=== PATIENT | female | born 2000 | race Caucasian/White ===

== ENCOUNTER 2023-04-06 10:53 | Emergency (ER) | payer MEDICAID, SELFPAY ==
--- NOTE | 2023-04-06 11:04 | ED.SKABFB ---
HPI - Skin/Abscess/Foreign Bdy General Chief complaint: Skin/Abscess/Foreign Body Stated complaint: body rash Time Seen by Provider: 04/06/23 10:59 Source: patient Mode of arrival: ambulatory Limitations: no limitations History of Present Illness HPI narrative: Isabella is a 22-year-old female patient presenting to the clinic today with complaints of rash all over her body. She reports the rash is itchy. States that this rash has been ongoing x3 days. Denies sore throat. Has tried Benadryl gel without much relief. Denies any known fever or chills. Is visiting [facility] all and has had different exposures to soaps, shampoos, detergents. No changes in food or medications. Related Data Home Medications Medication Instructions Recorded Confirmed levonorgestrel-ethinyl estradiol 1 tablet PO DAILY 04/06/23 04/06/23 0.1 mg-20 mcg tablet (Vienva) Allergies Allergy/AdvReac Type Severity Reaction Status Date / Time No Known Allergies Allergy Verified 04/06/23 11:14 Review of Systems Review of Systems: Pertinent positives per HPI. Patient denies any fever, chills, headache, visual changes, dizziness, cough, runny nose, sore throat, shortness of breath, chest pain, palpitations, nausea, vomiting, diarrhea, constipation, abdominal pain, or any urinary issues. PMFSH Comments At the time of my signature, I reviewed and agree with the nursing past medical, surgical, social, and family history. There is no relevant family history pertinent to the patient complaint. Exam Narrative: General: Well-developed, well nourished, in no apparent distress Head: Normocephalic, atraumatic Eyes: Pupils equally round and reactive to light bilaterally, EOM intact, sclera and conjunctive clear, no discharge, lids normal Ears: TMs intact and clear, ear canals clear, no drainage, grossly hearing normal. Nose: Nares patent, no discharge, no inflammation, no sinus tenderness. Mouth: Oropharynx red without lesions or masses, good dentition, MMM. Neck: Supple, trachea midline, no enlargement of anterior or posterior cervical nodes, no thyroid masses or goiter palpable. Cardio: Regular rate and rhythm, s1 and s2 normal, no murmur appreciated. Resp: Clear to auscultation bilaterally anteriorly and posteriorly, no rhonchi, rales, wheezing or rubs Integumentary: [place], warm, and dry, intact without lesion, red, mildly raised, blanchable, lacy/blotchy general rash all over body. Rash is itchy when she scratches it. Course Course Emergency Course: Portions of this record may have been created with voice recognition software. Level of Care: Express Care Visit Vital Signs Vital signs: Vital signs reviewed MDM - Skin/Abscess/Foreign Bdy MDM Narrative Medical decision making narrative: At the time of visit patient is resting comfortably on exam table. Strep screen was obtained and positive in the clinic today. I suspect patient has a strep rash. Will send in prescription for prednisone and amoxicillin. Supportive measures were discussed with the patient she voiced understanding discharge instructions agrees to treatment plan. Differential Diagnosis Differential diagnosis: Likely abscess of skin or subcutaneous tissue, urticaria, cellulitis, insect bites, impetigo, contact dermatitis and other (Strep infection) Discharge Plan Discharge Clinical Impression: Strep pharyngitis Patient Disposition: Home, Self-Care Condition: Stable Instructions: Antibiotic Form, Strep Throat (ED) Additional Instructions: Strep screen was positive in the clinic today. Take prednisone and amoxicillin as directed Increase fluids and stay well hydrated Tylenol/motrin for pain/fever Flonase and OTC antihistamines as directed Vicks vapor rub to open sinuses Sinus rinses for congestion Cepacol spray, cough drops, throat lozenges, warm tea with honey/lemon, gargle salt water to soothe throat BRAT diet for diarrhea Clear liquids x
[2023-04-06 11:10] VITALS: BP 118/76; PULSE 117; RESP 16; TEMP 36.7; O2SAT 100
== END 2023-04-06 11:35 | disposition home or self-care (01) ==
PROVIDERS: Emergency Provider Nurse Practitioner Family
DX: J02.0 Streptococcal pharyngitis (principal)
CPT/HCPCS: 87880; 99213; G0463

== ENCOUNTER 2023-04-15 10:48 | Emergency (ER) | payer MEDICAID, SELFPAY ==
[2023-04-15 11:03] VITALS: BP 112/72; PULSE 79; RESP 16; TEMP 36.3; O2SAT 100
--- NOTE | 2023-04-15 11:47 | ED.SKABFB ---
HPI - Skin/Abscess/Foreign Bdy General Chief complaint: Skin/Abscess/Foreign Body Stated complaint: body rash Time Seen by Provider: 04/15/23 11:48 Source: patient and RN notes reviewed Mode of arrival: ambulatory Limitations: no limitations History of Present Illness HPI narrative: 22-year-old female presents concern for rash. Reports she was seen on April 06 with the same rash was diagnosed with strep throat. Reports she took antibiotics as directed, she took steroid as directed. Reports she is on a finished antibiotics and the rash has returned. She reports the rash is very similar to the rash she had initially with strep. She denies swollen lips, swollen tongue, trouble breathing. She denies history of allergy to amoxicillin. She reports she took Benadryl initially with the 1st rash with no improvement. She denies fever, aches, chills, sweats. Reports mild sore throat. MD complaint: rash Related Data Home Medications Medication Instructions Recorded Confirmed levonorgestrel-ethinyl estradiol 1 tablet PO DAILY 04/06/23 04/06/23 0.1 mg-20 mcg tablet (Vienva) Allergies Allergy/AdvReac Type Severity Reaction Status Date / Time No Known Allergies Allergy Verified 04/15/23 11:33 Review of Systems Review of Systems: CONSTITUTIONAL: Denies malaise, chills, sweats, or fever. EYES: Denies redness, or discharge. ENT: Denies rhinorrhea, congestion, swollen lips, swollen tongue CARDIOVASCULAR: Denies chest pain, palpitations, or edema. RESPIRATORY: Denies cough or dyspnea. GASTROINTESTINAL: Denies abdominal pain, nausea, vomiting SKIN: Reports itchy rash on the hands, arms, chest, neck, face MUSCULOSKELETAL: Denies joint pain or myalgia. NEUROLOGIC: Denies headache. All systems reviewed & are unremarkable except as noted in HPI and below PMFSH Comments At time of signature, agree with nursing past medical, surgical, social and family history. There is no relevant family history pertinent to the presenting complaint Exam Narrative: GENERAL: Well-appearing, well-nourished, and in no acute distress. HEAD: Normocephalic, atraumatic. EYES: PERRLA, conjunctivae clear, and EOMI. ENT: Mucous membranes moist. Oropharynx without edema, erythema or lesions. NECK: Supple. No lymphadenopathy CHEST: Clear to auscultation. No respiratory distress. HEART: Regular rate and rhythm. SKIN: Warm, dry. Erythematous papules noted to the hands, wrists, chest, neck, face NEURO: Alert and oriented x3. PSYCH: Normal mood and affect Course Course Emergency Course: Patient is visiting from [place] for the summer, she does not have a primary care doctor here. Due to the questionable cause of this rash, patient was advised to take another round of steroids, we will culture the strep test. While I cannot rule out drug reaction, patient reports this rash is very similar to her initial rash was strep. Patient does not have adequate follow-up in [place]. Patient is aware of, understands and agrees to treatment plan. Anticipatory guidance given. Patient agrees to follow-up as directed and is aware of reasons to seek care at the emergency department. Portions of this record may have been created with voice recognition software Level of Care: Express Care Visit Vital Signs Vital signs: Vital Signs Temperature 97.3 F L 04/15/23 11:03 Pulse Rate 79 04/15/23 11:03 Respiratory Rate 16 04/15/23 11:03 Blood Pressure 112/72 04/15/23 11:03 Pulse Oximetry 100 04/15/23 11:03 Temperature 97.3 F L 04/15/23 11:03 Pulse Rate 79 04/15/23 11:03 Respiratory Rate 16 04/15/23 11:03 Blood Pressure 112/72 04/15/23 11:03 Pulse Oximetry 100 04/15/23 11:03 Reviewed. MDM - Skin/Abscess/Foreign Bdy MDM Narrative Medical decision making narrative: Does not appear at this time to be erythema multiforme, bullous, SJS, TEN; no evidence at this time to suggest RMSF, endocarditis or Lyme disease; patient looks
== END 2023-04-15 12:03 | disposition home or self-care (01) ==
PROVIDERS: Emergency Provider Nurse Practitioner
DX: R21 Rash and other nonspecific skin eruption (principal)
CPT/HCPCS: 87081; 87880; 99213; G0463

== ENCOUNTER 2023-08-27 17:58 | Emergency (ER) | payer SELFPAY ==
[2023-08-27 18:05] VITALS: BP 117/72; PULSE 102; RESP 16; TEMP 36.8; O2SAT 100
--- NOTE | 2023-08-27 18:07 | ED.URI ---
HPI - URI/Sore Throat General Chief Complaint: Upper Respiratory Infection Stated Complaint: Strep symptoms Time Seen by Provider: 08/27/23 18:05 Source: patient Mode of arrival: ambulatory Limitations: no limitations History of Present Illness HPI Narrative: Isabella is a 22-year-old female patient presenting to the clinic today with complaints of sore throat x3 days. She reports she has had a low-grade temperature as well. No URI symptoms. No known exposure to anyone with COVID, flu, or strep. MD elicited complaint: fever and sore throat Related Data Home Medications Medication Instructions Recorded Confirmed levonorgestrel-ethinyl estradiol 1 tablet PO DAILY 04/06/23 08/27/23 0.1 mg-20 mcg tablet (Vienva) Allergies Allergy/AdvReac Type Severity Reaction Status Date / Time amoxicillin [From Amoxil] Allergy Hives Verified 08/27/23 18:05 Review of Systems Review of Systems: Pertinent positives per HPI. Patient denies any fever, chills, rash, headache, visual changes, dizziness, cough, shortness of breath, chest pain, palpitations, nausea, vomiting, diarrhea, constipation, abdominal pain, or any urinary issues. PMFSH Comments At the time of my signature, I reviewed and agree with the nursing past medical, surgical, social, and family history. There is no relevant family history pertinent to the patient complaint. Exam Narrative: General: Well-developed, well nourished, in no apparent distress Head: Normocephalic, atraumatic Eyes: Pupils equally round and reactive to light bilaterally, EOM intact, sclera and conjunctive clear, no discharge, lids normal Ears: TMs intact and clear, ear canals clear, no drainage, grossly hearing normal. Nose: Nares patent, no discharge, no inflammation, no sinus tenderness. Mouth: Oral pharynx red with mild tonsillar enlargement without lesions or masses, good dentition, MMM. Neck: Supple, trachea midline, mild enlargement of anterior cervical nodes, no thyroid masses or goiter palpable. Cardio: Regular rate and rhythm, s1 and s2 normal, no murmur appreciated. Resp: Clear to auscultation bilaterally, no rhonchi, rales, wheezing or rubs Course Course Emergency Course: Portions of this record may have been created with voice recognition software. Level of Care: Express Care Visit Vital Signs Vital signs: Vital signs reviewed MDM - URI/Sore Throat MDM Narrative Medical decision making narrative: At the time of visit patient is resting comfortably on the exam table. Strep screen was obtained and positive in the clinic today. Prescription for azithromycin was sent to the pharmacy and supportive measures were discussed with the patient she voiced understanding discharge instructions and agreed to the treatment plan. Differential Diagnosis Differential diagnosis: Likely upper respiratory infection, otitis media, sinusitis, viral infection, bronchitis, influenza, pharyngitis and other (COVID) Discharge Plan Discharge Clinical Impression: Acute streptococcal pharyngitis Patient Disposition: Home, Self-Care Condition: Stable Instructions: Antibiotic Form, Strep Throat (ED) Additional Instructions: Strep screen is positive in the clinic today. Change your toothbrush in 24 hours after initiation of the antibiotics Take prescription medications only as prescribed-azithromycin Increase fluids and stay well hydrated Tylenol/motrin for pain/fever Flonase and OTC antihistamines as directed Vicks vapor rub to open sinuses Sinus rinses for congestion Cepacol spray, cough drops, throat lozenges, warm tea with honey/lemon, gargle salt water to soothe throat BRAT diet for diarrhea Clear liquids x 24 hours then advance as tolerated for nausea/vomiting Go to the ED if you develop a worsening in your condition- high fever not controlled by Tylenol or Motrin, dehydration, weakness, lethargy, shortness of breath, or chest pain. Follow up with your PCP
== END 2023-08-27 18:18 | disposition home or self-care (01) ==
PROVIDERS: Emergency Provider Nurse Practitioner Family
DX: J02.0 Streptococcal pharyngitis (principal)
CPT/HCPCS: 87880; 99213; G0463

== ENCOUNTER 2024-05-20 08:44 | Emergency (ER) | payer OTHER, SELFPAY ==
[2024-05-20 08:51] VITALS: BP 109/71; PULSE 87; RESP 16; TEMP 36.4; O2SAT 100
--- NOTE | 2024-05-20 08:51 | ED.URI ---
HPI - URI/Sore Throat General Chief Complaint: Upper Respiratory Infection Stated Complaint: Sore Throat Time Seen by Provider: 05/20/24 09:02 Source: patient, RN notes reviewed and old records reviewed Mode of arrival: ambulatory Limitations: no limitations History of Present Illness HPI Narrative: 23-year-old female to Express Care for complaint of sensation in her throat that feels like swelling for 2 days. Patient states that sensation is worse with swallowing. Patient denies cough, difficulty swallowing, shortness breath, chest pain recent illness, ear pain or pressure, GI complaints, fever, pertinent medical history. Patient does not endorse attempting to treat at home. Patient able to tolerate fluids by mouth. Respirations even and nonlabored. Patient in no acute distress. Related Data Home Medications Medication Instructions Recorded Confirmed norethindrone 1.5 mg-ethinyl 1 tablet PO DAILY 05/20/24 05/20/24 estradiol 30 mcg(21)/iron 75 mg(7) tablet (Aurovela Fe 1.5/30 (28)) Allergies Allergy/AdvReac Type Severity Reaction Status Date / Time amoxicillin [From Amoxil] Allergy Hives Verified 05/20/24 08:49 Review of Systems Review of Systems: All systems reviewed & are unremarkable except as noted in HPI and below Constitutional: Constitutional: Reports as per HPI, Denies body ache(s), Denies chills, Denies fatigue, Denies fever(s), Denies headache(s) and Denies poor appetite Eyes: Eyes: Reports no additional eye complaints ENT: Reports as per HPI, Denies change in voice, Denies dizziness, Denies ear discharge, Denies otalgia, Denies headache(s), Denies hoarseness, Denies nose pain, Denies disequilibrium, Denies sore throat, Reports throat swelling and Denies tongue swelling Cardiovascular: Cardiovascular: Reports no additional cardiovascular complaints, Denies chest pain and Denies dyspnea Respiratory: Respiratory: Reports no additional respiratory complaints, Denies cough and Denies dyspnea Musculoskeletal: Musculoskeletal: Reports no additional musculoskeletal complaints Neurologic: Reports system reviewed and no additional complaints, except as documented Psychiatric: Psychiatric: Reports no additional psychiatric complaints PMFSH Comments At the time of my signature, I reviewed and agree with the nursing past medical, surgical, social, and family history. There is no relevant family history pertinent to the patient complaint. Exam Const: General: cooperative, healthy appearing, comfortable, no acute distress, alert and well nourished Nutritional Appearance: well nourished Orientation/consciousness: patient oriented x3 Limitations: no limitations HENMT: Head: normal to inspection Ears: external ears normal Face/Nose/Sinus: Normal external nose present, Normal nares present, normal facial exam, No erythema and No edema Face and sinus: normal facial exam, no erythema and no edema Mouth: Yes Normal oral and palatal mucosa present Throat: uvula midline, abnormal tonsil, no peritonsillar masses, posterior oropharynx abnormal erythema, postnasal drainage, uvula not displaced and no uvular edema Eyes: General: appearance normal, both eyes and all related structures Neck: Neck: normal visual inspection, full ROM and no meningeal signs Lymphatic: no lymphadenopathy noted and no lymphedema noted Chest: Chest palpation & inspection: normal inspection of the chest Resp: Effort & Inspection: normal respiratory effort and able to speak in complete sentences Auscultation: clear to auscultation bilaterally Cardio: Jugular venous distension: no JVD Rate: regular rate Rhythm: regular rhythm Back/Spine/Pelvis: Cervical Spine: cervical ROM normal Skin: General skin exam: normal color, no rashes or lesions noted and turgor normal Neuro: General: patient oriented x3, gait normal, moves all extremities and no meningeal signs Speech: normal speech Gait exam (Neuro): Normal gait present Extrem: Ge
[2024-05-20 09:05] LABS: EDSTREPNEGPOS1 Presumptive Negative
== END 2024-05-20 09:20 | disposition home or self-care (01) ==
PROVIDERS: Emergency Provider Nurse Practitioner Family
DX: J06.9 Acute upper respiratory infection, unspecified (principal)
CPT/HCPCS: 87081; 87880; 99213; G0463

== ENCOUNTER 2024-07-30 12:35 | Emergency (ER) | payer OTHER, SELFPAY ==
[2024-07-30 12:43] VITALS: BP 121/76; PULSE 92; RESP 16; TEMP 37.1; O2SAT 100
--- NOTE | 2024-07-30 13:02 | ED.EYEPROB ---
HPI - Eye Problem General Chief complaint: Eye Problems Stated complaint: STY L EYE Time Seen by Provider: 07/30/24 13:16 Source: patient and RN notes reviewed Mode of arrival: ambulatory Limitations: no limitations History of Present Illness HPI Narrative: Patient presents today complaining of a stye to the left lower eyelid that appeared 2 days ago and has been worsening since onset. Patient has been applying warm compresses but states the stye continues to grow. Related Data Home Medications Medication Instructions Recorded Confirmed norethindrone 1.5 mg-ethinyl 1 tablet PO DAILY 07/30/24 07/30/24 estradiol 30 mcg(21)/iron 75 mg(7) tablet (Aurovela Fe 1.5/30 (28)) Allergies Allergy/AdvReac Type Severity Reaction Status Date / Time erythromycin base Allergy Mild Hives Verified 07/30/24 13:04 amoxicillin [From Amoxil] Allergy Hives Verified 07/30/24 12:42 Review of Systems Review of Systems: CONSTITUTIONAL: Denies body aches, fever, chills, or sweats. EYES: Denies visual changes, redness, or discharge. + stye ENT: Denies rhinorrhea, congestion, sore throat, or otalgia. CARDIOVASCULAR: Denies chest pain, palpitations, or edema. RESPIRATORY: Denies cough or dyspnea. GASTROINTESTINAL: Denies abdominal pain, nausea, vomiting, or diarrhea. GENITOURINARY: Denies dysuria or hematuria. SKIN: Denies rash, itching, or wounds. MUSCULOSKELETAL: Denies back pain, joint pain, or myalgia. NEUROLOGIC: Denies headache, numbness, tingling, or weakness. PSYCH: Denies depression or anxiety. PMFSH Comments At time of signature, I have reviewed and agree with nursing past medical, surgical, social and family history unless otherwise noted. Please see nursing chart for further information. There is no relevant family history pertinent to the presenting complaint Exam Narrative: GENERAL: Well-appearing, well-nourished, and in no acute distress. HEAD: Normocephalic, atraumatic. EYES: EOMI. PERRL. left eye: Moderately sized internal stye to the mid lower eyelid. No active drainage. Irritation and erythema to the eyelid border with some mild edema. ENT: Mucous membranes pink and moist. NECK: Normal AROM. CHEST: No respiratory distress. EXTREMITIES: Normal range of motion. No edema. SKIN: Warm, dry, no rash. Capillary refill normal. Normal skin turgor. NEURO: No focal deficits. Alert and oriented x3. Gait steady. PSYCH: Normal affect. No signs of depression or anxiety. Course Course Level of Care: Express Care Visit Vital Signs Vital signs: Vital Signs Temperature 98.8 F 07/30/24 12:43 Pulse Rate 92 07/30/24 12:43 Respiratory Rate 16 07/30/24 12:43 Blood Pressure 121/76 07/30/24 12:43 Pulse Oximetry 100 07/30/24 12:43 Temperature 98.8 F 07/30/24 12:43 Pulse Rate 92 07/30/24 12:43 Respiratory Rate 16 07/30/24 12:43 Blood Pressure 121/76 07/30/24 12:43 Pulse Oximetry 100 07/30/24 12:43 Reviewed MDM - Eye Problem MDM Narrative Medical decision making narrative: Recommend continuing warm compresses as it appears the stye will likely rupture with continued use. Prescription for Polytrim sent to pharmacy. Recommend follow-up with an eye doctor if symptoms do not improve. Patient agrees with plan. Anticipatory guidance given. Differential Diagnosis Differential diagnosis: Likely conjunctivitis and other (Stye) Critical Care Time Critical Care Time Critical Care Time: No Discharge Plan Discharge Clinical Impression: [place] Patient Disposition: Home, Self-Care Condition: Stable Instructions: Antibiotic Form, Stye (ED) Additional Instructions: Continue your warm compresses on your stye for 10 minutes at a time several times a day to facilitate drainage. Taking anti-inflammatories such as Aleve or ibuprofen for pain and inflammation. Use the eyedrops as directed. Follow-up with an eye doctor in 3-4 days if symptoms are not improving. Y
== END 2024-07-30 13:17 | disposition home or self-care (01) ==
PROVIDERS: Emergency Provider Nurse Practitioner
DX: H00.025 Hordeolum internum left lower eyelid (principal)
CPT/HCPCS: 99213; G0463

== ENCOUNTER 2025-03-12 14:34 | Emergency (ER) | payer OTHER, SELFPAY ==
[2025-03-12 14:50] VITALS: BP 118/70; PULSE 72; RESP 20; TEMP 36.7; O2SAT 97
--- NOTE | 2025-03-12 15:02 | ED.FEMALEGU ---
HPI - Female Genitourinary General Chief complaint: Urogenital-Female <Danitza Barber NP - Last Filed: 03/14/25 19:30> Stated complaint: Urinary Problem <Danitza Barber NP - Last Filed: 03/14/25 19:30> Time Seen by Provider: 03/12/25 14:55 <Danitza Barber NP - Last Filed: 03/14/25 19:30> Source: patient, RN notes reviewed and old records reviewed <Danitza Barber NP - Last Filed: 03/14/25 19:30> Mode of arrival: ambulatory <Danitza Barber NP - Last Filed: 03/14/25 19:30> Limitations: no limitations <Danitza Barber NP - Last Filed: 03/14/25 19:30> History of Present Illness HPI Narrative: 24-year-old female presents to [facility] with complaints of burning with urination and intermittent urgency for one week duration. Patient reports that she has not had any known fevers, chills or sweats, denies any nausea or vomiting. Patient reports no concern for STD exposure, denies any vaginal discharge or bleeding or itching. Patient has no taken any AZO fr her symptoms. <Danitza Barber NP - Last Filed: 03/14/25 19:30> MD elicited complaint: UTI <Danitza Barber NP - Last Filed: 03/14/25 19:30> Onset (ago): week(s) (1) <Danitza Barber NP - Last Filed: 03/14/25 19:30> Location of symptoms: urethra <Danitza Barber NP - Last Filed: 03/14/25 19:30> Severity: moderate <Danitza Barber NP - Last Filed: 03/14/25 19:30> Quality of pain: burning <Danitza Barber NP - Last Filed: 03/14/25 19:30> Consistency: intermittent <Danitza Barber NP - Last Filed: 03/14/25 19:30> Vaginal discharge: none <Danitza Barber NP - Last Filed: 03/14/25 19:30> Vaginal bleeding: none <Danitza Barber NP - Last Filed: 03/14/25 19:30> Urinary symptoms: Dysuria, Urgency and Frequency <Danitza Barber NP - Last Filed: 03/14/25 19:30> Related Data Home medications: Home Medications ?Medication ?Instructions ?Recorded ?Confirmed ?Last Taken ?Type norethindrone 1.5 mg-ethinyl 1 tablet PO DAILY 07/30/24 03/12/25 Unknown History estradiol 30 mcg(21)/iron 75 mg(7) tablet (Aurovela Fe 1.5/30 (28)) <Danitza Barber NP - Last Filed: 03/14/25 19:30> Allergies/Adverse reactions: Allergies Allergy/AdvReac Type Severity Reaction Status Date / Time erythromycin base Allergy Mild Hives Verified 03/12/25 14:55 Penicillins Allergy Mild Hives Verified 03/12/25 14:55 amoxicillin (From Amoxil) Allergy Hives Verified 03/12/25 14:55 <Danitza Barber NP - Last Filed: 03/14/25 19:30> Review of Systems Review of Systems: CONSTITUTIONAL: Denies fever, chills, or sweats. CARDIOVASCULAR: Denies chest pain, palpitations, or edema. RESPIRATORY: Denies cough or dyspnea. GASTROINTESTINAL: Denies abdominal pain, nausea, vomiting, or diarrhea. GENITOURINARY: Reports dysuria, frequency, urgency. Denies flank pain or hematuria. SKIN: Denies rash or itching. MUSCULOSKELETAL: Denies back pain or myalgia. Denies CVA tenderness NEUROLOGIC: Denies headache <Danitza Barber NP - Last Filed: 03/14/25 19:30> All systems reviewed & are unremarkable except as noted in HPI and below <Danitza Barber NP - Last Filed: 03/14/25 19:30> REPLACED BY [facility] Social History Social History: Social History (Updated 03/14/25 @ 19:25 by Danitza Barber NP) Alcohol intake: current Alcohol use details: social Substance use type: does not use <Danitza Barber NP - Last Filed: 03/14/25 19:30> Comments At time of signature, agree with nursing past medical, surgical, social and family history. There is no relevant family history pertinent to the presenting complaint <Danitza Barber NP - Last Filed: 03/14/25 19:30> Exam Narrative: GENERAL: Well-appearing, well-nourished, and in no acute distress. HEAD: Normocephalic, atraumatic. NECK: Supple.no lymphadenopathy CHEST: Clear to auscultation. No respiratory distress.SAO2 97% on room air HEART: Regular rate and rhythm. No murmur heard. Normal peripheral pulses. ABDOMEN: Soft, nontender, nondistended, normal active bowel sounds. No CVA tenderness reports burning with urination, urgency and frequency, EXTREMITIES: Normal range of motion. No edema. SKIN: Warm, dry, no rash. NEURO: No focal deficits. Alert and oriented x3. <GALILEO Carias Last Filed: 03/14/25 19:30> Course Course Emergency Course: Patient is aware of diagnosis, understands and agrees to treatment plan.? Anticipatory guidance given.? Patient agrees to follow-up as directed and is aware of reasons to seek care at the emergency department. Portions of this record may have been created with voice recognition software <Danitza Barber NP - Last Filed: 03/14/25 19:30> Level of Care: Express Care Visit <Danitza Barber NP - Last Filed: 03/14/25 19:30> Vital Signs Vital signs: Vital Signs Temperature 98.0 F 03/12/25 14:50 Pulse Rate 72 03/12/25 14:50 Respiratory Rate 20 03/12/25 14:50 Blood Pressure 118/70 03/12/25 14:50 Pulse Oximetry 97 03/12/25 14:50 Oxygen Delivery Room Air 03/12/25 14:50 Temperature 98.0 F 03/12/25 14:50 Pulse Rate 72 03/12/25 14:50 Respiratory Rate 20 03/12/25 14:50 Blood Pressure 118/70 03/12/25 14:50 Pulse Oximetry 97 03/12/25 14:50 Oxygen Delivery Room Air 03/12/25 14:50 reviewed <GALILEO Carias Last Filed: 03/14/25 19:30> Vital Signs Temperature 98.0 F 03/12/25 14:50 Pulse Rate 72 03/12/25 14:50 Respiratory Rate 20 03/12/25 14:50 Blood Pressure 118/70 03/12/25 14:50 Pulse Oximetry 97 03/12/25 14:50 Oxygen Delivery Room Air 03/12/25 14:50 Temperature 98.0 F 03/12/25 14:50 Pulse Rate 72 03/12/25 14:50 Respiratory Rate 20 03/12/25 14:50 Blood Pressure 118/70 03/12/25 14:50 Pulse Oximetry 97 03/12/25 14:50 Oxygen Delivery Room Air 03/12/25 14:50 <Jami Bergeron INTEGRATED MARKETING SPECIALIST - Last Filed: 03/15/25 15:35> MDM - Female Genitourinary MDM Narrative Medical decision making narrative: Exam findings and UA show no acute concerns or changes; patient is non-toxic appearing and is in no distress.? Patient is appropriate for outpatient treatment and follow-up. <Danitza Barber NP - Last Filed: 03/14/25 19:30> Differential Diagnosis Differential diagnosis: Likely urinary tract infection, cystitis and other (dysuria, UTI symptoms) <Danitza Barber NP - Last Filed: 03/14/25 19:30> Medical Records Attestation: I reviewed the patient's medical records. <Danitza Barber NP - Last Filed: 03/14/25 19:30> Lab Data Attestation: I reviewed the patient's lab results. <Danitza Barber NP - Last Filed: 03/14/25 19:30> Lab results narrative: see urine dip results <Danitza Barber NP - Last Filed: 03/14/25 19:30> Labs: Lab Results 03/12/25 Range/Units 14:56 POC Urine Color Yellow POC Urine Clarity Clear POC Urine pH 7.0 POC Ur Specif [place] 1.020 POC Urine Protein Negative (Negative) POC Ur Glucose (UA) Negative (Negative) POC Urine Ketones Negative (Negative) POC Urine Blood Negative (Negative) POC Urine Nitrite Negative (Negative) POC Urine Bilirubin Negative (Negative) POC Urine Urobilinogen 0.2 POC U Leukocyte Esteras Negative (Negative) reviewed <Danitza Barber NP - Last Filed: 03/14/25 19:30> Lab Results 03/12/25 Range/Units 14:56 POC Urine Color Yellow POC Urine Clarity Clear POC Urine pH 7.0 POC Ur Specif [place] 1.020 POC Urine Protein Negative (Negative) POC Ur Glucose (UA) Negative (Negative) POC Urine Ketones Negative (Negative) POC Urine Blood Negative (Negative) POC Urine Nitrite Negative (Negative) POC Urine Bilirubin Negative (Negative) POC Urine Urobilinogen 0.2 POC U Leukocyte Esteras Negative (Negative) <Jami Bergeron NP - Last Filed: 03/15/25 15:35> Critical Care Time Critical Care Time Critical Care Time: No <Danitza Barber NP - Last Filed: 03/14/25 19:30> Discharge Plan Discharge Clinical Impression: Urinary tract infection, UTI symptoms <Danitza Barber NP - Last Filed: 03/14/25 19:30> Patient Disposition: Home <Danitza Barber NP - Last Filed: 03/14/25 19:30> Condition: Stable <Danitza Barber NP - Last Filed: 03/14/25 19:30> Instructions: Antibiotic Form, Urinary Tract Infection in Women (ED) <Danitza Barber NP - Last Filed: 03/14/25 19:30> Additional Instructions: Increase fluids especially cranberry juice and water Avoid caffeine and carbonated beverages Antibiotic as directed Tylenol/ibuprofen for pain or fever Follow-up with her primary care provider if further problems or concerns Recheck if you have fever over 101, nausea and vomiting. If your symptoms persist, change or worsen significantly before you can contact your personal physician then please, without delay, go to the emergency department for further evaluation. Follow-up with PCP in 7-10 days or sooner if needed <GALILEO Carias Last Filed: 03/14/25 19:30> Patient Language: Malian <Danitza Barber NP - Last Filed: 03/14/25 19:30> Prescriptions: New nitrofurantoin monohyd/m-cryst [Macrobid] 100 mg capsule 100 mg PO Q12H 5 Days Qty: 10 0RF Rx Instructions: must administer with a meal/food No Action norethindrone-e.estradiol-iron [Aurovela Fe 1.5/30 (28)] 1.5 mg-30 mcg (21)/75 mg (7) tablet 1 tablet PO DAILY <Danitza Barber NP - Last Filed: 03/14/25 19:30> Follow-up/Referrals: PHYSICIAN,PMO ANALYST [Primary Care Provider] - <Danitza Barber NP - Last Filed: 03/14/25 19:30> Time of Disposition: 15:14 <Danitza Barber NP - Last Filed: 03/14/25 19:30> 15:14 <Jami Bergeron NP - Last Filed: 03/15/25 15:35> Quality [place] Coma Scale Eyes: Open <Danitza Barber NP - Last Filed: 03/14/25 19:30> Verbal: Oriented and Alert <Danitza Barber NP - Last Filed: 03/14/25 19:30> Motor: Follows Commands <Danitza Barber NP - Last Filed: 03/14/25 19:30> [place] Coma Total Score: 15 <Danitza Barber NP - Last Filed: 03/14/25 19:30> 15 <Jami Bergeron NP - Last Filed: 03/15/25 15:35>
[2025-03-12 15:10] LABS: EDUAAPPEAR Clear; EDUABILI Negative (Negative); EDUABLOOD Negative (Negative); EDUACOLOR1 Yellow; EDUAGLUCOSE Negative (Negative); EDUAKETONE Negative (Negative); EDUALEUKO Negative (Negative); EDUANITRATE Negative (Negative); EDUAPROTEIN Negative (Negative); EDUAUROBILI 0.2
--- NOTE | 2025-03-12 15:10 | ED_ITS ---
HPI - Female Genitourinary General Chief complaint: Urogenital-Female Stated complaint: Urinary Problem Time Seen by Provider: 03/12/25 14:55 Source: patient, RN notes reviewed and old records reviewed Mode of arrival: ambulatory Limitations: no limitations History of Present Illness MD elicited complaint: UTI Related Data Home Medications ?Medication ?Instructions ?Recorded ?Confirmed ?Last Taken ?Type norethindrone 1.5 mg-ethinyl 1 tablet PO DAILY 07/30/24 03/12/25 Unknown History estradiol 30 mcg(21)/iron 75 mg(7) tablet (Aurovela Fe 1.5/30 (28)) Allergies Allergy/AdvReac Type Severity Reaction Status Date / Time erythromycin base Allergy Mild Hives Verified 03/12/25 14:55 Penicillins Allergy Mild Hives Verified 03/12/25 14:55 amoxicillin (From Amoxil) Allergy Hives Verified 03/12/25 14:55 Review of Systems Review of Systems: CONSTITUTIONAL: Denies fever, chills, or sweats. CARDIOVASCULAR: Denies chest pain, palpitations, or edema. RESPIRATORY: Denies cough or dyspnea. GASTROINTESTINAL: Denies abdominal pain, nausea, vomiting, or diarrhea. GENITOURINARY: Reports dysuria, frequency, urgency. Denies flank pain or hematuria. SKIN: Denies rash or itching. MUSCULOSKELETAL: Denies back pain or myalgia. Denies CVA tenderness NEUROLOGIC: Denies headache All systems reviewed & are unremarkable except as noted in HPI and below PMFSH Comments At time of signature, agree with nursing past medical, surgical, social and family history. There is no relevant family history pertinent to the presenting complaint Exam Narrative: GENERAL: Well-appearing, well-nourished, and in no acute distress. HEAD: Normocephalic, atraumatic. NECK: Supple. CHEST: Clear to auscultation. No respiratory distress. HEART: Regular rate and rhythm. No murmur heard. Normal peripheral pulses. ABDOMEN: Soft, nontender, nondistended, normal active bowel sounds. No CVA tenderness EXTREMITIES: Normal range of motion. No edema. SKIN: Warm, dry, no rash. NEURO: No focal deficits. Alert and oriented x3. Course Course Emergency Course: Patient is aware of diagnosis, understands and agrees to treatment plan.? Anticipatory guidance given.? Patient agrees to follow-up as directed and is aware of reasons to seek care at the emergency department. Portions of this record may have been created with voice recognition software Level of Care: Express Care Visit Vital Signs Vital signs: Vital Signs Temperature 36.7 C 03/12/25 14:50 Pulse Rate 72 03/12/25 14:50 Respiratory Rate 20 03/12/25 14:50 Blood Pressure 118/70 03/12/25 14:50 Pulse Oximetry 97 03/12/25 14:50 Oxygen Delivery Room Air 03/12/25 14:50 Temperature 36.7 C 03/12/25 14:50 Pulse Rate 72 03/12/25 14:50 Respiratory Rate 20 03/12/25 14:50 Blood Pressure 118/70 03/12/25 14:50 Pulse Oximetry 97 03/12/25 14:50 Oxygen Delivery Room Air 03/12/25 14:50 MDM - Female Genitourinary MDM Narrative Medical decision making narrative: Exam findings and UA show no acute concerns or changes; patient is non-toxic appearing and is in no distress.? Patient is appropriate for outpatient treatment and follow-up. Differential Diagnosis Differential diagnosis: Likely urinary tract infection and cystitis Lab Data Attestation: I reviewed the patient's lab results. Labs: Lab Results 03/12/25 Range/Units 14:56 POC Urine Color Yellow POC Urine Clarity Clear POC Urine pH 7.0 POC Ur Specif [place] 1.020 POC Urine Protein Negative (Negative) POC Ur Glucose (UA) Negative (Negative) POC Urine Ketones Negative (Negative) POC Urine Blood Negative (Negative) POC Urine Nitrite Negative (Negative) POC Urine Bilirubin Negative (Negative) POC Urine Urobilinogen 0.2 POC U Leukocyte Esteras Negative (Negative) Discharge Plan Discharge Clinical Impression: Urinary tract infection, UTI symptoms Patient Disposition: Home Condition: Stable Instructions: Antibiotic Form, Urinary Tract Infection in Women (ED) Additional Instructions: Increase fluids especially cranberry juice and water Avoid caffeine and carbonated beverages Antibiotic as directed Tylenol/ibuprofen for pain or fever Follow-up with her primary care provider if further problems or concerns Recheck if you have fever over 101, nausea and vomiting. If your symptoms persist, change or worsen significantly before you can contact your personal physician then please, without delay, go to the emergency department for further evaluation. Follow-up with PCP in 7-10 days or sooner if needed Patient Language: Persian Prescriptions: New nitrofurantoin monohyd/m-cryst [Macrobid] 100 mg capsule 100 mg PO Q12H 5 Days Qty: 10 0RF Rx Instructions: must administer with a meal/food No Action norethindrone-e.estradiol-iron [Aurovela Fe 1.5/30 (28)] 1.5 mg-30 mcg (21)/75 mg (7) tablet 1 tablet PO DAILY Follow-up/Referrals: PHYSICIAN,[facility] [Primary Care Provider] - Time of Disposition: 15:08
== END 2025-03-12 15:16 | disposition home or self-care (01) ==
PROVIDERS: Emergency Provider Registered Nurse
DX: N39.0 Urinary tract infection, site not specified (principal)
CPT/HCPCS: 81003; 87086; 99213; G0463